=== PATIENT | female | born 1975 | race Caucasian/White ===

== ENCOUNTER → 2016-07-06 | Outpatient (CLI) | payer BC ==
[~2016-07-06] MED LIST: ABL/5 PO; BIOT1CAP8 PO; CETI10TA84 PO; DOXY100C2 PO; FERR1TAB23 PO; FOLI1TAB7 PO; LEVO50TA6 PO; OMEG10007 PO; PSEU1TAB PO; SERT-234 PO; WLLSR100 PO; ZIPR20CA PO
[2016-07-06 09:39] LABS: HEMATOCRIT 40.5 % (37-47); MEAN CORPUSCULAR HEMOGLOBIN 29.7 pg (25-34); MEAN CORPUSCULAR HGB CONC 34.6 g/dl (32-36); MEAN PLATELET VOLUME 8.8 fL (7.4-10.4); PLATELET COUNT 335 K/uL (130-400); RED BLOOD COUNT 4.71 M/uL (4.2-5.4); WHITE BLOOD COUNT 6.89 K/uL (4.8-10.8)
[2016-07-06 09:51] LABS: FERRITIN 252.5 ng/ml (8.0-388.0)
== END | disposition home or self-care (01) ==
LOC: C.LAB 09:16
DX: E61.1 Iron deficiency (principal)

== ENCOUNTER 2016-09-16 08:55 | Emergency (ER) | payer BC ==
[~2016-09-16] VITALS: Ht 162.6 cm; Wt 77.6 kg
[~2016-09-16 08:55] MED LIST changes: -ABL/5 PO; -DOXY100C2 PO; -FOLI1TAB7 PO; -LEVO50TA6 PO; -OMEG10007 PO; -WLLSR100 PO; -ZIPR20CA PO
[2016-09-16 09:03] VITALS: TEMP 36.6; Ht 162.6 cm; Wt 77.6 kg
--- NOTE | 2016-09-16 09:34 | EMERGENCY ROOM VISIT NOTE ---
History Report prepared by Sha: Tiffany Mayes Under the Supervision of: Dr. Deanna Yusuf M.D. First contact with patient: 09:19 Chief Complaint: MENTAL HEALTH EVALUATION Stated Complaint: DEPRESSION History of Present Illness The patient is a 40 year old female who presents to the Emergency Room for mental health evaluation. The patient was with her psychiatrist this morning and was referred to the ED. She states that her depression has been worsening. The patient has had many medication changes recently. She was on an anti- depressant and a mood stabilizer. Her psychiatrist then changed the anti- depressant with no improvement of the patient's symptoms. The psychiatrist then was taken off the anti-depressant and changed the mood stabilizer. She still has not seen an improvement with her depression. The patient does admit to suicidal thoughts about wanting to end her life but she has not acted on this thought or formed a plan. She has had suicidal thoughts before but denies ever attempting suicide. The patient denies inpatient psychiatric help before, alcohol use, drug use, chance of , or cutting herself. The patient would like to admit herself to inpatient treatment. 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 Review of Systems See HPI for pertinent positives & negatives. A total of 10 systems reviewed and were otherwise negative. Past Medical & Surgical Medical Problems: (1) Depression Family History Patient reports no known family medical history. Social History Smoking Status: Never Smoker Smokeless Tobacco Use: No Alcohol Use: none Drug Use: none Marital Status: Housing Status: lives with family Current/Historical Medications Scheduled Aripiprazole (Abilify), 1 TAB PO DAILY Bupropion HCl (Bupropion HCl Sr), 1 TAB PO BID Doxycycline Hyclate (Vibramycin), 1 TAB PO BID Fish Oil (Placitas-3), 1 CAP PO DAILY Folic Acid (Folvite), 1 MG PO DAILY Levothyroxine Sodium (Levothyroxine Sodium), 1 TAB PO DAILY Ziprasidone Hcl (Geodon), 1 TAB PO DAILY Allergies Coded Allergies: Penicillins (Verified Allergy, Intermediate, HIVES, 09/16/16) Physical Exam Vital Signs Date Time Temp Pulse Resp B/P Pulse Ox O2 Delivery O2 Flow Rate FiO2 09/16/16 15:35 84 18 121/76 96 09/16/16 11:08 65 18 111/69 100 Room Air 09/16/16 09:03 36.6 76 18 118/76 100 Room Air Physical Exam Vital signs reviewed. General: Well-appearing 40 yo female, somewhat tearful. HEENT: No scleral icterus, PERRLA, neck supple. Atraumatic. Cardiovascular: Regular rate and rhythm, no extra sounds. Pulmonary: Clear to auscultation bilaterally, normal work of breathing. Abdomen: Soft, nontender, nondistended, positive bowel sounds. Musculoskeletal: Atraumatic, no peripheral edema. Neurologic: Patient awake alert and oriented x 3, full strength in all 4 extremities. Cranial nerves 2 through 12 grossly intact. Skin: Warm, dry, no rash Psych: Positive suicidal ideation. Negative homicidal ideation. Medical Decision & Procedures Laboratory Results 09/16/16 09:43 Red Blood Count 4.39, Mean Corpuscular Volume 85.4, Mean Corpuscular Hemoglobin 29.6, Mean Corpuscular Hemoglobin Concent 34.7, Mean Platelet Volume 9.0, Neutrophils (%) (Auto) 53.8, Lymphocytes (%) (Auto) 32.4, Monocytes (%) (Auto) 8.0, Eosinophils (%) (Auto) 4.6, Basophils (%) (Auto) 1.2, Neutrophils # (Auto) 2.20, Lymphocytes # (Auto) 1.33, Monocytes # (Auto) 0.33, Eosinophils # (Auto) 0.19, Basophils # (Auto) 0.05 09/16/16 09:43 Test 09/16/16 09:15 09/16/16 09:43 Urine Color YELLOW Urine Appearance CLEAR (CLEAR) Urine pH 5.5 (4.5-7.5) Urine Specific [place] 1.030 (1.000-1.030) Urine Protein NEG (NEG) Urine Glucose (UA) NEG (NEG) Urine Ketones NEG (NEG) Urine Occult Blood NEG (NEG) Urine Nitrite NEG (NEG) Urine Bilirubin NEG (NEG) Urine Urobilinogen NEG (NEG) Urine Leukocyte Esterase NEG (NEG) Urine Test NEG (NEG) Urine Opiates Screen NEG (NEG) Urine Methadone, Qualitative NEG (NEG) Urine Barbiturates NEG (NEG) Urine Phencyclidine (PCP) Level NEG (NEG) Ur Amphetamine/Methamphetamine NEG (NEG) MDMA (Ecstasy) Screen NEG (NEG) Urine Benzodiazepines Screen NEG (NEG) Urine Cocaine Metabolite NEG (NEG) Urine Marijuana (THC) NEG (NEG) White Blood Count 4.10 K/uL (4.8-10.8) Red Blood Count 4.39 M/uL (4.2-5.4) Hemoglobin 13.0 g/dL (12.0-16.0) Hematocrit 37.5 % (37-47) Mean Corpuscular Volume 85.4 fL (80-100) Mean Corpuscular Hemoglobin 29.6 pg (25-34) Mean Corpuscular Hemoglobin Concent 34.7 g/dl (32-36) Platelet Count 272 K/uL (130-400) Mean Platelet Volume 9.0 fL (7.4-10.4) Neutrophils (%) (Auto) 53.8 % Lymphocytes (%) (Auto) 32.4 % Monocytes (%) (Auto) 8.0 % Eosinophils (%) (Auto) 4.6 % Basophils (%) (Auto) 1.2 % Neutrophils # (Auto) 2.20 K/uL (1.4-6.5) Lymphocytes # (Auto) 1.33 K/uL (1.2-3.4) Monocytes # (Auto) 0.33 K/uL (0.11-0.59) Eosinophils # (Auto) 0.19 K/uL (0-0.5) Basophils # (Auto) 0.05 K/uL (0-0.2) RDW Standard Deviation 38.4 fL (36.4-46.3) RDW Coefficient of Variation 12.3 % (11.5-14.5) Immature Granulocyte % (Auto) 0.0 % Immature Granulocyte # (Auto) 0.00 K/uL (0.00-0.02) Anion Gap 7.0 mmol/L (3-11) Est Creatinine Clear Calc Drug Dose 93.3 ml/min Estimated GFR () 106.1 Estimated GFR (Non- 91.6 BUN/Creatinine Ratio 24.2 (10-20) Calcium Level 8.3 mg/dl (8.5-10.1) Total Bilirubin 0.4 mg/dl (0.2-1) Direct Bilirubin < 0.1 mg/dl (0-0.2) Aspartate Amino Transf (AST/SGOT) 12 U/L (15-37) Alanine Aminotransferase (ALT/SGPT) 20 U/L (12-78) Alkaline Phosphatase 52 U/L (45-117) Total Protein 6.8 gm/dl (6.4-8.2) Albumin 3.6 gm/dl (3.4-5.0) Thyroid Stimulating Hormone (TSH) 1.360 uIu/ml (0.300-4.500) Salicylates Level < 1.7 mg/dl (2.8-20) Acetaminophen Level 2 ug/ml (10-30) Ethyl Alcohol mg/dL < 3.0 mg/dl (0-3) Laboratory results per my review. ED Course 09: Past medical records reviewed. The patient was evaluated in room A5. A complete history and physical examination was performed. 0945: Bed search is being done. 1429: The patient has been accepted at [facility]. Medical Decision The patient is a 40 year old female who presents to the ED for mental health evaluation. Differentials include mood disorder, infection, hypoglycemia, electrolyte abnormalities, cardiac sources, intracerebral event, toxicologic, neurologic, as well as others were entertained. This patient was evaluated and appeared to be in no significant distress. Patient was tearful and is voluntary for inpatient admission. She was medically cleared and evaluated by mental health. She was accepted at the [facility] for inpatient admission. Secure transportation arrangements have been made. Impression Primary Impression: Suicidal ideation Scribe Attestation The scribe's documentation has been prepared under my direction and personally reviewed by me in its entirety. I confirm that the note above accurately reflects all work, treatment, procedures, and medical decision making performed by me. Departure Information Dispostion Mental Health Acute Care Referrals Bk Tesfaye Jr,D.O. (PCP)
[2016-09-16 09:37] LABS: URINE APPEARANCE CLEAR (CLEAR); URINE BILIRUBIN NEG (NEG); URINE COLOR YELLOW; URINE NITRITE NEG (NEG); URINE PH 5.5 (4.5-7.5); UROBILINOGEN NEG (NEG); ZZUR CULT IF INDIC CLEAN CATCH NO
[2016-09-16 09:41] LABS: MANUAL MICROSCOPIC REQUIRED? NO; REVIEW REQ? NO
[2016-09-16 09:55] LABS: BASO % 1.2 %; BASO ABS # 0.05 K/uL (0-0.2); COMPLETE YES; EOS % 4.6 %; HEMATOCRIT 37.5 % (37-47); LYMPH % 32.4 %; LYMPH ABS # 1.33 K/uL (1.2-3.4); MEAN CELL VOLUME 85.4 fL (80-100); MEAN CORPUSCULAR HEMOGLOBIN 29.6 pg (25-34); MEAN CORPUSCULAR HGB CONC 34.7 g/dl (32-36); NEUT % 53.8 %; PLATELET COUNT 272 K/uL (130-400); RED BLOOD COUNT 4.39 M/uL (4.2-5.4)
[2016-09-16] MEDS ORDERED: FOLI1TAB7 PO (10:14)
[2016-09-16] MEDS ORDERED: OMEG10007 PO (10:14)
[2016-09-16] MEDS ORDERED: DOXY100C2 PO (10:14)
[2016-09-16] MEDS ORDERED: ZIPR20CA PO (10:14)
[2016-09-16] MEDS ORDERED: LEVO50TA6 PO (10:14)
[2016-09-16] MEDS ORDERED: ABL/5 PO (10:15)
[2016-09-16] MEDS ORDERED: WLLSR100 PO (10:15)
[2016-09-16 10:19] LABS: ALT/SGPT 20 U/L (12-78); AST/SGOT 12 U/L (15-37); BLOOD UREA NITROGEN 19 mg/dl (7-18); BUN/CREATININE RATIO 24.2 (10-20); CALCIUM 8.3 mg/dl (8.5-10.1); CARBON DIOXIDE 26 mmol/L (21-32); CHLORIDE 112 mmol/L (98-107); GLUCOSE 106 mg/dl (70-99); POTASSIUM 3.9 mmol/L (3.5-5.1); SODIUM 145 mmol/L (136-145)
[2016-09-16 10:19] LABS: BENZODIAZEPINE, URINE NEG (NEG); COCAINE,URINE NEG (NEG); PHENCYCLIDINE, URINE NEG (NEG)
[2016-09-16 10:28] LABS: ALKALINE PHOSPHATASE 52 U/L (45-117)
[2016-09-16 10:32] LABS: ACETAMINOPHEN 2 ug/ml (10-30)
[2016-09-16 15:35] VITALS: BP 121/76; PULSE 84; O2SAT 96
== END 2016-09-16 15:35 ==
LOC: C.EDB 08:57 → C.EDA 15:35
DX: R45.851 Suicidal ideations (principal); F32.9 Major depressive disorder, single episode, unspecified

== ENCOUNTER → 2016-10-14 | Outpatient (CLI) | payer BC ==
[~2016-10-14] MED LIST changes: +ABL/5 PO; -BIOT1CAP8 PO; -CETI10TA84 PO; +DOXY100C2 PO; -FERR1TAB23 PO; +FOLI1TAB7 PO; +LEVO50TA6 PO; +OMEG10007 PO; -PSEU1TAB PO; -SERT-234 PO; +WLLSR100 PO; +ZIPR20CA PO
[2016-10-14 13:14] LABS: FERRITIN 143.1 ng/ml (8.0-388.0); THYROID STIMULATING HORMONE 1.5 uIu/ml (0.300-4.500)
== END | disposition home or self-care (01) ==
LOC: C.LAB 10:26
DX: E03.9 Hypothyroidism, unspecified (principal); E55.9 Vitamin D deficiency, unspecified; E61.1 Iron deficiency; E78.5 Hyperlipidemia, unspecified; R73.9 Hyperglycemia, unspecified

== ENCOUNTER → 2017-03-16 | Outpatient (CLI) | payer BC | END | disposition home or self-care (01) | LOC: C.LAB 13:49 | PROVIDERS: ATTEND Psychiatry & Neurology Psychiatry | DX: F31.81 Bipolar II disorder (principal) ==